=== PATIENT | female | born 1985 | race Caucasian/White ===

== ENCOUNTER 2018-09-20 11:50 | Inpatient (IN) | payer OTHER ==
[2018-09-20] MEDS: DEXTROSE 5%-LACTATED RINGERS 1,000 ML IV SCH (12:30)
[2018-09-20] MEDS: ELECTROLYTE-148 SOLN 1,000 ML IV SCH (12:30)
[2018-09-20 13:04] VITALS: BMI 23.1
[2018-09-20] MEDS ORDERED: BUTORPHANOL TARTRATE 1 MG/ML VIAL ONE ×2 (13:37)
[2018-09-20] MEDS ORDERED: PROMETHAZINE HCL 25 MG/1 ML VIAL ONE (13:38)
[2018-09-20] MEDS ORDERED: PROMETHAZINE HCL 25 MG/1 ML VIAL IVPB ONE (13:50)
[2018-09-20] MEDS ORDERED: BUTORPHANOL TARTRATE 1 MG/ML VIAL IVPB ONE (13:50)
[2018-09-20 13:59] LABS: BASO % 0.3 % (0-2.0); EOS % 0.7 % (0-4.5); HEMATOCRIT 36.6 % (32.4-45.2); HEMOGLOBIN 12.8 GM/dL (10.7-15.3); LYMPH % 9.8 % (8-40); MCH 31.2 pg (25.7-33.7); MCHC 35.1 g/dl (32.0-36.0); MEAN CELL VOLUME 88.9 fl (80-96); MEAN PLT VOLUME 9.2 fl (7.5-11.1); MONO % 7.7 % (3.8-10.2); NEUT % 81.5 % (42.8-82.8); PLATELET COUNT 222 K/MM3 (134-434); RBC 4.11 M/mm3 (3.60-5.2); WHITE BLOOD COUNT 11.6 K/mm3 (4.0-10.0)
[2018-09-20 14:05] LABS: INR 0.88 (0.83-1.09); PROTHROMBIN TIME (PATIENT) 10.4 SEC (9.7-13.0)
[2018-09-20 14:08] LABS: ACTIVATED PTT 25.7 SECONDS (25.2-36.5)
[2018-09-20 14:16] LABS: ANION GAP 8 MMOL/L (8-16); BLOOD UREA NITROGEN 9 mg/dL (7-18); CALCIUM 7.8 mg/dL (8.5-10.1); CHLORIDE 106 mmol/L (98-107); CO2 24 mmol/L (21-32); CREATININE 0.7 mg/dL (0.55-1.3); GLUCOSE,RANDOM 90 mg/dL (74-106); POTASSIUM 3.8 mmol/L (3.5-5.1); SODIUM 139 mmol/L (136-145)
[2018-09-20] MEDS ORDERED: FENTANYL/BUPIVACAINE/NS/PF - PCEA - 50 ML DISP.SYRIN EP ONE (15:54)
[2018-09-20] MEDS ORDERED: ELECTROLYTE-148 SOLN 1,000 ML IV SCH (16:00)
[2018-09-20] MEDS ORDERED: BUPIVACAINE HCL/PF 0.25% (2.5MG/ML) 10 ML VIAL ONE (16:01)
--- NOTE | 2018-09-20 16:02 | HP ---
Past Medical History - Admission Chief Complaint: Labor pain History of Present Illness: 32 yo @ 38 weeks gestation, EDC 10/04/18, admitted for labor pain. Upon admission she was 5cm dilated. History Source: Patient Limitations to Obtaining History: No Limitations - Past Medical History ...: 2 ...Para: 1 ...Term: 1 ...: 0 ...Spon : 0 ...Induced : 0 ...Multiple Gestation: 0 ...LMP: 12/28/17 ... Weeks Gestation by Dates: 38 ...EDC by Sono: 10/04/18 - Past Surgical History Past Surgical History: Yes: None Hx Myomectomy: No Hx Transabdominal Cerclage: No - Smoking History Smoking history: Unknown if ever smoked Have you smoked in the past 12 months: No - Alcohol/Substance Use Hx Alcohol Use: No - Social History Usual Living Arrangement: Yes: With Spouse History of Recent Travel: No Home Medications - Allergies Allergies/Adverse Reactions: Allergies Allergy/AdvReac Type Severity Reaction Status Date / Time Penicillins Allergy Verified 09/20/18 14:13 penicillin Allergy Severe Hives Uncoded 09/20/18 14:13 shell Allergy Severe Hives Uncoded 09/20/18 14:13 - Home Medications Home Medications: Ambulatory Orders Vitamins (Sjr) - 1 tab PO DAILY 08/03/18 Family Disease History - Family Disease History Family History: Unremarkable Review of Systems - Review of Systems Constitutional: reports: No Symptoms Eyes: reports: No Symptoms HENT: reports: No Symptoms Neck: reports: No Symptoms Cardiovascular: reports: No Symptoms Respiratory: reports: No Symptoms Gastrointestinal: reports: No Symptoms Genitourinary: reports: Pain Breasts: reports: No Symptoms Reported Musculoskeletal: reports: No Symptoms Neurological: reports: No Symptoms Psychiatric: reports: No Symptoms Pain Intensity: 7 Physical Exam - Maternity Vital Signs: Vital Signs Temperature 98.0 F 09/20/18 14:00 Pulse Rate 65 09/20/18 15:00 Respiratory Rate 20 09/20/18 15:00 Blood Pressure 123/85 09/20/18 15:00 O2 Sat by Pulse Oximetry (%) Constitutional: Yes: Well Nourished Eyes: Yes: Conjunctiva Clear HENT: Yes: Atraumatic Neck: Yes: Supple Cardiovascular: Yes: Regular Rate and Rhythm Lungs: Clear to auscultation - Abdominal Exam/OB Number of Fetuses: Single Presentation: Vertex Contractions: Yes Regularity: Irregular Intensity: Moderate - Vaginal Exam/OB Vaginal Bleediing: Light Dilatation (cm): 5 Amniotic Membrane Status: Intact - Physical Exam ...Motor Strength: WNL Psychiatric: Yes: Alert, Oriented - Labs Lab Results: CBC, BMP 09/20/18 13:20 09/20/18 13:20 Problem List - Problems (1) Pain during labor Code(s): O99.89 - OTH DISEASES AND CONDITIONS COMPL PREG/CHLDBRTH; R52 - PAIN, UNSPECIFIED Assessment/Plan Active labor Admit to L&D Analgesia as needed Anticipate
[2018-09-20] MEDS: FENTANYL/BUPIVACAINE/NS/PF - PCEA - 50 ML DISP.SYRIN EP SCH (16:15)
[2018-09-20] MEDS ORDERED: NALOXONE HCL 0.4 MG/ML VIAL IVPUSH PRN (17:01)
[2018-09-20] MEDS ORDERED: OXYTOCIN 20 UNITS in 0.9% NS 20 UNIT/1,000 ML INFUS.BAG IV ONE (18:36)
[2018-09-20] MEDS ORDERED: BISACODYL 10 MG SUPP.RECT RC PRN (20:03)
[2018-09-20] MEDS ORDERED: WITCH HAZEL 50% (TUCKS) 40 PAD/JAR PAD TP PRN (20:03)
[2018-09-20] MEDS ORDERED: METHYLERGONOVINE MALEATE 0.2 MG/1 ML AMP IM PRN (20:03)
[2018-09-20] MEDS ORDERED: BENZOCAINE 28 GM HEMORRHOIDAL OINTMENT TP PRN (20:03)
[2018-09-20] MEDS ORDERED: BENZOCAINE 20% 57 GM BOTTLE TP PRN (20:03)
--- NOTE | 2018-09-20 20:06 | PN ---
Delivery - Delivery Vaginal Delivery: Spontaneous Type of Anesthesia: Epidural Episiotomy/Laceration: None EBL (cc): 300 Delivery, Single - Stages of Labor Date 1st Stage Initiatied: 09/20/18 Time 1st Stage Initiated: 10:00 Date 2nd Stage Initiated: 09/20/18 Date of Delivery: 09/20/18 - [place] Feeding Plan Initial Plan: Elected not to breastfeed exclusively throughout hospitalization Remarks - Remarks Remarks: Normal spontaneous vaginal delivery of a live infant girl over intact perineum. Nose / Oropharynx suctioned @ perineum. Cord clamped and cut. Baby handed to nurse. Placenta expelled spontaneously intact.
[2018-09-20] MEDS ORDERED: OXYTOCIN 20 UNITS in 0.9% NS 20 UNIT/1,000 ML INFUS.BAG IV SCH (20:15)
[2018-09-20] MEDS ORDERED: ACETAMINOPHEN 325 MG TABLET (FP) ONE (20:15)
[2018-09-20] MEDS: ACETAMINOPHEN 325 MG TABLET (FP) PO PRN (20:15)
[2018-09-20] MEDS ORDERED: OXYTOCIN 30 UNITS in 0.9% NS 30 UNIT/500 ML INFUS.BAG IVPB SCH (21:00)
[2018-09-20] MEDS: FERROUS SO4 325 MG TABLET (FP) PO SCH (23:07)
[2018-09-21 07:48] LABS: BASO % 0.2 % (0-2.0); EOS % 0.4 % (0-4.5); HEMATOCRIT 36.5 % (32.4-45.2); HEMOGLOBIN 12.7 GM/dL (10.7-15.3); MCH 30.5 pg (25.7-33.7); MCHC 34.7 g/dl (32.0-36.0); MEAN CELL VOLUME 87.8 fl (80-96); MEAN PLT VOLUME 8.9 fl (7.5-11.1); MONO % 7.9 % (3.8-10.2); NEUT % 83.5 % (42.8-82.8); PLATELET COUNT 213 K/MM3 (134-434); RBC 4.16 M/mm3 (3.60-5.2); RDW 14.1 % (11.6-15.6); WHITE BLOOD COUNT 18.4 K/mm3 (4.0-10.0)
--- NOTE | 2018-09-21 07:58 | PN ---
Post Progress Note - Subjective Subjective: 32 yo Para 2, status post vaginal delivery, seen and evaluated. Doing well. Post Day: 1 Type of Delivery: Vital Signs: Vital Signs Temperature 98.3 F 09/21/18 06:00 Pulse Rate 81 09/21/18 06:00 Respiratory Rate 20 09/21/18 06:00 Blood Pressure 110/70 09/21/18 06:00 O2 Sat by Pulse Oximetry (%) 100 09/20/18 19:45 Breast Exam: Yes: Soft Uterus: Yes: Fundus Firm Abdomen/GI: Yes: Abdomen soft, Tolerating PO Lochia: Yes: Rubra Lochia, amount: Moderate Extremities: Yes: Calves non-tender Perineum: Yes: Intact Activity: Ambulating - Labs Labs: CBC WBC 11.6 K/mm3 (4.0-10.0) H 09/20/18 13:20 RBC 4.11 M/mm3 (3.60-5.2) 09/20/18 13:20 Hgb 12.8 GM/dL (10.7-15.3) 09/20/18 13:20 Hct 36.6 % (32.4-45.2) 09/20/18 13:20 MCV 88.9 fl (80-96) 09/20/18 13:20 MCH 31.2 pg (25.7-33.7) 09/20/18 13:20 MCHC 35.1 g/dl (32.0-36.0) 09/20/18 13:20 RDW 14.0 % (11.6-15.6) 09/20/18 13:20 Plt Count 222 K/MM3 (134-434) 09/20/18 13:20 MPV 9.2 fl (7.5-11.1) D 09/20/18 13:20 Absolute Neuts (auto) 9.4 K/mm3 (1.5-8.0) H 09/20/18 13:20 Neutrophils % 81.5 % (42.8-82.8) 09/20/18 13:20 Lymphocytes % 9.8 % (8-40) 09/20/18 13:20 Monocytes % 7.7 % (3.8-10.2) 09/20/18 13:20 Eosinophils % 0.7 % (0-4.5) 09/20/18 13:20 Basophils % 0.3 % (0-2.0) 09/20/18 13:20 Nucleated RBC % 0 % (0-0) 09/20/18 13:20 Problem List - Problems (1) Pain during labor Code(s): O99.89 - OTH DISEASES AND CONDITIONS COMPL PREG/CHLDBRTH; R52 - PAIN, UNSPECIFIED (2) Status post normal vaginal delivery Code(s): [id number] - Assessment/Plan Status post vaginal delivery Stable Continue routine care
[2018-09-21] MEDS: IBUPROFEN 600 MG TABLET (FP) PO PRN ×2 (08:55→20:17)
[2018-09-21] MEDS: FERROUS SO4 325 MG TABLET (FP) PO SCH ×3 (08:56→22:13)
[2018-09-21] MEDS: PRENATAL VITAMINS W/ FOLIC ACID TABLET (FP) PO SCH ×2 (08:56→10:20)
[2018-09-21] MEDS: ACETAMINOPHEN 325 MG TABLET (FP) PO PRN ×2 (08:56→20:18)
[2018-09-21] MEDS ORDERED: DIPHTH,PERTUSS(ACELL),TET 0.5 ML DISP.SYRIN IM ONE (10:00)
[2018-09-21] MEDS: ELECTROLYTE-148 SOLN 1,000 ML IV SCH (18:58)
[2018-09-21] MEDS: FENTANYL/BUPIVACAINE/NS/PF - PCEA - 50 ML DISP.SYRIN EP SCH (18:58)
[2018-09-21] MEDS: DEXTROSE 5%-LACTATED RINGERS 1,000 ML IV SCH (18:58)
[2018-09-21] MEDS ORDERED: SENNOSIDES/DOCUSATE COMBO (SENNA PLUS) TABLET (UD) PO PRN (22:00)
[2018-09-22] MEDS: ACETAMINOPHEN 325 MG TABLET (FP) PO PRN ×2 (01:35→09:34)
[2018-09-22] MEDS: IBUPROFEN 600 MG TABLET (FP) PO PRN ×2 (01:36→09:36)
[2018-09-22] MEDS: FERROUS SO4 325 MG TABLET (FP) PO SCH (09:34)
[2018-09-22] MEDS: PRENATAL VITAMINS W/ FOLIC ACID TABLET (FP) PO SCH (09:34)
--- NOTE | 2018-09-22 12:42 | DS ---
Physical Exam-FIELD INTERVIEWER Vital Signs: Vital Signs Temperature 98.1 F 09/21/18 22:00 Pulse Rate 86 09/21/18 22:00 Respiratory Rate 18 09/21/18 22:00 Blood Pressure 144/78 09/21/18 22:00 O2 Sat by Pulse Oximetry (%) 100 09/20/18 19:45 Constitutional: Yes: Well Nourished Eyes: Yes: Conjunctiva Clear HENT: Yes: Atraumatic Neck: Yes: Supple Cardiovascular: Yes: Regular Rate and Rhythm Respiratory: Yes: Regular Gastrointestinal: Yes: Normal Bowel Sounds External Genitalia: Yes: Normal Vaginal Exam: Yes: Normal Cervix: Yes: Normal Uterus: Yes: Firm ....Post : Yes: Uterus firm, Moderate lochia serosa Breast(s): Yes: WNL Musculoskeletal: Yes: WNL Extremities: Yes: WNL Neurological: Yes: Alert, Oriented ...Motor Strength: WNL Psychiatric: Yes: Alert, Oriented Labs: CBC, BMP 09/21/18 07:10 09/20/18 13:20 Delivery - Delivery Vaginal Delivery: Spontaneous Type of Anesthesia: Epidural Episiotomy/Laceration: None EBL (cc): 400 Delivery, Single - Stages of Labor Date 1st Stage Initiatied: 09/20/18 Time 1st Stage Initiated: 10:00 Date 2nd Stage Initiated: 09/20/18 Time 2nd Stage Initiated: 19:40 Date of Delivery: 09/20/18 Time of Delivery: 19:55 Time Placenta Delivered: 20:10 - 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 Disposition: HOME - Home Medications Comprehensive Discharge Medication List: Ambulatory Orders Vitamins (Sjr) - 1 tab PO DAILY 08/03/18
[2018-09-22 14:24] VITALS: BP 126/72; PULSE 82; TEMP 98
== END 2018-09-22 13:00 | disposition home or self-care (01) | DRG 373 ==
LOC: JLDR 11:50 → J3W 22:47
PROVIDERS: ADMIT Obstetrics & Gynecology; ATTEND Obstetrics & Gynecology
PROC: 10E0XZZ Delivery of Products of Conception, External Approach (ICD-10-PCS; principal; 2018-09-20)
DX: O80 Encounter for full-term uncomplicated delivery (principal); Z3A.38 38 weeks gestation of pregnancy; Z37.0 Single live birth
CPT/HCPCS: 36415; 59409; 80048; 85025; 85610; 85730; 86593; 86850; 86900; 86901; 90715

== ENCOUNTER 2018-12-16 05:12 | Day surgery (SDC) | payer OTHER ==
[2018-12-15 12:28] VITALS: BMI 18.8
--- NOTE | 2018-12-16 14:22 | HP ---
Admitting History and Physical - Admission Chief Complaint: Bartholin cyst History of Present Illness: 33 yo with bartholin cyst is pre op for cyst removal. History Source: Patient Limitations to Obtaining History: No Limitations - Past Medical History ...LMP: 12/01/18 ...: No ...: 2 ...Para: 2 - Past Surgical History Past Surgical History: Yes: None - Smoking History Smoking history: Never smoked Have you smoked in the past 12 months: No - Alcohol/Substance Use Hx Alcohol Use: Yes (rarely) History of Substance Use: reports: None - Social History Usual Living Arrangement: Yes: With Significant Other History of Recent Travel: No Home Medications - Allergies Allergies/Adverse Reactions: Allergies Allergy/AdvReac Type Severity Reaction Status Date / Time shellfish derived Allergy Unknown Verified 12/15/18 12:37 penicillin Allergy Severe Hives Uncoded 12/15/18 12:28 - Home Medications Home Medications: Ambulatory Orders Control 1 tab PO HS 12/15/18 Family Disease History - Family Disease History Family History: Unremarkable Review of Systems - Review of Systems Constitutional: reports: No Symptoms Eyes: reports: No Symptoms HENT: reports: No Symptoms Neck: reports: No Symptoms Cardiovascular: reports: No Symptoms Respiratory: reports: No Symptoms Gastrointestinal: reports: No Symptoms Genitourinary: reports: Other (Vulva mass) Neurological: reports: No Symptoms Psychiatric: reports: No Symptoms Pain Intensity: 0 Physical Examination Vital Signs: Vital Signs Temperature 97.8 F 12/16/18 12:23 Pulse Rate 68 12/16/18 12:23 Respiratory Rate 20 12/16/18 12:23 Blood Pressure 132/72 12/16/18 12:23 O2 Sat by Pulse Oximetry (%) 98 12/16/18 12:24 Constitutional: Yes: Well Nourished Eyes: Yes: Conjunctiva Clear HENT: Yes: Atraumatic Neck: Yes: Supple Cardiovascular: Yes: Regular Rate and Rhythm Respiratory: Yes: Regular Gastrointestinal: Yes: Normal Bowel Sounds Neurological: Yes: Alert, Oriented ...Motor Strength: WNL Psychiatric: Yes: Alert, Oriented Problem List - Problems (1) Bartholin cyst Code(s): N75.0 - CYST OF BARTHOLIN'S GLAND Assessment/Plan Bartholin cyst Pre op for cyst removal Consent signed Anesthesia to see patient
[2018-12-16] MEDS ORDERED: MIDAZOLAM HCL 2 MG/2 ML SINGLE DOSE VIAL ONE ×2 (14:24)
--- NOTE | 2018-12-16 15:38 | OP ---
Operative Note - Note: Operative Date: 12/16/18 Pre-Operative Diagnosis: Right bartholin cyst Operation: Bartholin cyst removal Post-Operative Diagnosis: Same as Pre-op Surgeon: Mary Potter Anesthesia: General Specimens Removed: Bartholin cyst wall Estimated Blood Loss (mls): 50
[2018-12-16] MEDS ORDERED: ONDANSETRON 4 MG/2 ML VIAL IVPUSH PRN (15:49)
[2018-12-16] MEDS ORDERED: oxyCODONE HCL 5 MG TABLET PO PRN (15:49)
[2018-12-16] MEDS ORDERED: LACTATED RINGERS SOLUTION 1,000 ML IV SCH (16:00)
[2018-12-16 17:34] VITALS: TEMP 97.8
[2018-12-16] MEDS ORDERED: oxyCODONE HCL 5 MG TABLET ONE (18:08)
[2018-12-16 19:20] VITALS: BP 120/80; PULSE 72
--- NOTE | 2018-12-20 19:15 | PATH ---
Surgical Pathology Report Patient Name: SHANTELLE FRENCH [facility]. Rec. #: [id number] /Age/Gender: 1985 (Age: 33) / F Account: [id number] Location: [facility] SURGICAL Taken: 12/16/2018 Received: 12/17/2018 Reported: 12/20/2018 Physicians: Mary Potter M.D. Specimen(s) Received BARTHOLIN'S GLAND CYST WALL Clinical History Bartholin's gland cyst Final Diagnosis BARTHOLIN'S GLAND CYST WALL, EXCISION: CONSISTENT WITH ACUTELY INFLAMED BARTHOLIN CYST. Electronically Signed Beronica Neves M.D. Gross Description Received in formalin labeled "Bartholin's gland cyst" is an irregular fragment of pink-thornton soft tissue measuring 5 x 2 x 0.7 cm. Surface is focally hemorrhagic and variegated. Granulator sections are submitted in one cassette. MLSZ/12/17/2018 isaac/12/17/2018
--- NOTE | 2018-12-21 21:37 | OP ---
DATE OF OPERATION: 12/16/2018 PREOPERATIVE DIAGNOSIS: Bartholin cyst. POSTOPERATIVE DIAGNOSIS: Bartholin cyst. PROCEDURE: Right Bartholin cyst removal. SURGEON: Phyllis Pottre MD ANESTHESIA: General. COMPLICATIONS: None. ESTIMATED BLOOD LOSS: 20 mL. DESCRIPTION OF PROCEDURE: Patient was taken to the operating room where general anesthesia was administered. Patient was then placed in lithotomy position. She was then prepped and draped in proper sterile fashion. Then 5 mL of was then injected into the area to allow proper dissection. Then a 15 blade was used to make an incision over the vulva. Then the skin edge was grasped with a clamp and using Metzenbaum scissors, the cyst was dissected off the skin. Then during dissection, the cyst was ruptured. Then the dissection continued, and then a Cyndi clamp was placed at the base of the cyst, and the cyst was excised. A suture was placed at the base of the skin. Hemostasis was obtained using 2-0 Vicryl sutures. The cavity was closed in layers, and hemostasis was obtained. After closing the cavity in layers, the vulva was closed with the same suture. The area was irrigated. Then the patient was taken out of lithotomy position. She was taken to PACU in stable condition. PATHOLOGY: Bartholin cyst wall. PHYLLIS POTTER M.D. JAYLA/[id number]
== END 2018-12-16 19:10 | disposition home or self-care (01) ==
LOC: JASU-SURG 05:12
PROVIDERS: ATTEND Obstetrics & Gynecology
PROC: 0UBL0ZZ Excision of Vestibular Gland, Open Approach (ICD-10-PCS; principal; 2018-12-16 13:30)
DX: N75.0 Cyst of Bartholin's gland (principal)
CPT/HCPCS: 84703; 88304-TC; 94760